=== PATIENT | female | born 1975 | race Caucasian/White ===

== ENCOUNTER 2018-05-21 11:08 | Emergency (ER) | payer BC, OTHER ==
[2018-05-21] MEDS ORDERED: NS 500 ML IV ONE (11:25)
[2018-05-21] MEDS ORDERED: ALBUTEROL 3 ML DEYVIAL IH ONE (11:25)
--- NOTE | 2018-05-21 11:25 | EDPHY ---
H & P Stated Complaint: DX WALKING PNA FEELING SOB Time Seen by Provider: 05/21/18 11:24 HPI/ROS: HPI: This is a 42-year-old female who presents with Chief Complaint: DX WALKING PNA FEELING SOB Location: Chest Quality: Dyspnea Duration: Since Wednesday Signs and Symptoms: + shortness of breath at rest, + shortness of breath on exertion, no cough, no chest pain, no palpitations, no lower extremity edema, no wheezing, no orthopnea, no paroxysmal nocturnal dyspnea, no fever, no injury/ trauma, no hemoptysis, no carpal pedal spasms Timing: Worsening Severity: [id number] Context: Patient reports that 2 weeks ago she had a cold. On Wednesday she started to feel like it was moving into her chest. She started to experience a nonproductive cough. She went to her primary care provider on Wednesday and was diagnosed with"walking pneumonia." She was given azithromycin 5 day pack as well as albuterol inhaler. She reports that today she feels short of breath with exertion and at rest. She denies any recent long distance travel, calf swelling, calf pain. She reports that she has been taking Mucinex and she is now coughing up phlegm. No history of lung disease. Modifying Factors: ProAir inhaler and azithromycin on day 4 of 5 Comment: ROS: A comprehensive 10 system review of systems is otherwise negative aside from elements mentioned in the history of present illness. MEDICAL/SURGICAL/SOCIAL HISTORY: Medical history: Generally healthy. Does not take any regular medications. Surgical history: Denies Social history: Never smoked. CONSTITUTIONAL: Nontoxic appearing middle-aged white female, awake and alert, no obvious distress HEENT: Atraumatic and normocephalic, PERRL, EOMI. Wears glasses, Nares patent; no rhinorrhea; no nasal mucosal edema. Tympanic membranes clear. Oropharynx clear, no exudate and moist pink mucosa. Airway patent. No lymphadenopathy. No meningismus. Cardiovascular: Normal S1/S2, regular rate, regular rhythm, without murmur rub or gallop. PULMONARY/CHEST: Symmetrical and nontender. Clear to auscultation bilaterally. Good air movement. No accessory muscle usage. ABDOMEN: Soft, nondistended, nontender, no rebound, no guarding, no peritoneal signs, no masses or organomegaly. No CVAT. EXTREMITIES: 2/2 pulses, strength 5/5, no deformities, no clubbing, no cyanosis or edema. NEUROLOGICAL: no focal neuro deficits. GCS 15. SKIN: Warm and dry, no erythema. no rash. Good capillary refill. Source: Patient Exam Limitations: No limitations - Personal History LMP (Females 10-55): 22-28 Days Ago Current Tetanus Diphtheria and Acellular Pertussis (TDAP): Yes - Medical/Surgical History Hx Asthma: No Hx Chronic Respiratory Disease: No Hx Diabetes: No Hx Cardiac Disease: No Hx Renal Disease: No Hx Cirrhosis: No Hx Alcoholism: No Hx HIV/AIDS: No Hx Splenectomy or Spleen Trauma: No Other PMH: PNA - Social History Smoking Status: Never smoked Constitutional: Initial Vital Signs Temperature (C) 37.2 C 05/21/18 11:17 Heart Rate 94 05/21/18 11:17 Respiratory Rate 20 05/21/18 11:17 Blood Pressure 120/85 H 05/21/18 11:17 O2 Sat (%) 100 05/21/18 11:17 O2 Delivery Mode Room Air Allergies/Adverse Reactions: amoxicillin [Amoxicillin] Allergy (Unknown, Verified 05/21/18 11:15) Penicillins Allergy (Unknown, Verified 05/21/18 11:15) CILLAINS Allergy (Uncoded 02/17/10 20:45) Home Medications: Medication Instructions Recorded Azithromycin 05/21/18 Metformin HCl 05/21/18 Proair Hfa 05/21/18 Spironolactone 05/21/18 predniSONE [predniSONE TAPER] 10 mg PO DAILY 6 Days ea 05/21/18 Medical Decision Making - Diagnostics Imaging Results: Imaging Impressions Chest X-Ray 05/21/18 11:25 Impression: Normal chest. ED Course/Re-evaluation: Vital signs reviewed and stable upon arrival. No systemic signs. O2 sats 100% on room air. IV access and laboratory studies obtained. Chest x-ray, albuterol inhaler, prednisone 60 mg and 500 cc normal saline bolus ordered. 1205: Labs reviewed. No signs of leukocytosis/anemia/platelet dysfunction/JUAN/ electrolyte imbalance//VTE. Chest x-ray my read shows no opacity, no effusion, no pneumothorax. Given a prescription for steroid taper. I do not believe a stronger antibiotic is indicated at this time as it appears to be viral in nature. This patient was seen under the supervision of my secondary supervising physician. I evaluated care for this patient independently. Discussed this patient with Dr. Millan. Differential Diagnosis: Shortness of breath including but not limited to pulmonary infectious process, COPD, asthma, pulmonary embolus and congestive heart failure. - Data Points Laboratory Results: Laboratory Results 05/21/18 11:40 05/21/18 11:40 05/21/18 05/21/18 05/21/18 11:40 11:40 11:40 WBC RBC Hgb Hct MCV MCH MCHC RDW Plt Count MPV Neut % (Auto) Lymph % (Auto) Crowley % (Auto) Eos % (Auto) Baso % (Auto) Nucleat RBC Rel Count Absolute Neuts (auto) Absolute Lymphs (auto) Absolute Monos (auto) Absolute Eos (auto) Absolute Basos (auto) Absolute Nucleated RBC Immature Gran % Immature Gran # D-Dimer < 0.27 ug/mLFEU ug/mLFEU (0.00-0.50) Sodium 140 mEq/L mEq/L (135-145) Potassium 3.6 mEq/L mEq/L (3.3-5.0) Chloride 104 mEq/L mEq/L (97-110) Carbon Dioxide 25 mEq/l mEq/l (22-31) Anion Gap 11 mEq/L mEq/L (6-14) BUN 11 mg/dL mg/dL (7-23) Creatinine 0.8 mg/dL mg/dL (0.6-1.0) Estimated GFR > 60 Glucose 98 mg/dL mg/dL (70-100) Calcium 9.4 mg/dL mg/dL (8.5-10.4) Beta HCG, Qual NEGATIVE 05/21/18 11:40 WBC 8.70 10^3/uL 10^3/uL (3.80-9.50) RBC 4.57 10^6/uL 10^6/uL (4.18-5.33) Hgb 13.4 g/dL g/dL (12.6-16.3) Hct 38.3 % % (38.0-47.0) MCV 83.8 fL fL (81.5-99.8) MCH 29.3 pg pg (27.9-34.1) MCHC 35.0 g/dL g/dL (32.4-36.7) RDW 11.9 % % (11.5-15.2) Plt Count 307 10^3/uL 10^3/uL (150-400) MPV 9.7 fL fL (8.7-11.7) Neut % (Auto) 64.6 % % (39.3-74.2) Lymph % (Auto) 21.0 % % (15.0-45.0) Crowley % (Auto) 9.9 % % (4.5-13.0) Eos % (Auto) 3.6 % % (0.6-7.6) Baso % (Auto) 0.6 % % (0.3-1.7) Nucleat RBC Rel Count 0.0 % % (0.0-0.2) Absolute Neuts (auto) 5.62 10^3/uL 10^3/uL (1.70-6.50) Absolute Lymphs (auto) 1.83 10^3/uL 10^3/uL (1.00-3.00) Absolute Monos (auto) 0.86 10^3/uL H 10^3/uL (0.30-0.80) Absolute Eos (auto) 0.31 10^3/uL 10^3/uL (0.03-0.40) Absolute Basos (auto) 0.05 10^3/uL 10^3/uL (0.02-0.10) Absolute Nucleated RBC 0.00 10^3/uL 10^3/uL (0-0.01) Immature Gran % 0.3 % % (0.0-1.1) Immature Gran # 0.03 10^3/uL 10^3/uL (0.00-0.10) D-Dimer Sodium Potassium Chloride Carbon Dioxide Anion Gap BUN Creatinine Estimated GFR Glucose Calcium Beta HCG, Qual Medications Given: Discontinued Medications Albuterol (Proventil Neb) 3 ml IH EDNOW ONE Stop: 05/21/18 11:26 Last Admin: 05/21/18 11:34 Dose: 3 ml Sodium Chloride (Ns) 500 mls @ 1,000 mls/hr IV EDNOW ONE PRN Reason: Protocol Stop: 05/21/18 11:54 Last Admin: 05/21/18 11:33 Dose: 500 mls Prednisone (Prednisone) 60 mg PO EDNOW ONE Stop: 05/21/18 12:42 Last Admin: 05/21/18 12:45 Dose: 60 mg Departure - Departure Disposition: Home, Routine, Self-Care Clinical Impression: Viral bronchitis Condition: Good Instructions: Acute Bronchitis (ED) Additional Instructions: Rest as much as possible until you are feeling better. Consume a minimum of 8-10 glasses of water or electrolyte fluid replacement drinks that include Gatorade, Powerade, Pedialyte. Complete the course of antibiotics as directed. Use albuterol inhaler every 4-6 hours as needed for shortness of breath, wheezing. Take prednisone taper as directed. Referrals: Nancie Ascencio NP [Primary Care Provider] - 3-4 days, if not improved Prescriptions: predniSONE [predniSONE TAPER] 10 mg PO DAILY 6 Days ea
[2018-05-21 11:52] LABS: PLATELET COUNT 307 10^3/uL (150-400)
[2018-05-21] MEDS ORDERED: predniSONE 20 MG TAB PO ONE (12:41)
[2018-05-21 13:27] VITALS: BP 140/89
== END 2018-05-21 13:35 | disposition home or self-care (01) ==
DX: J20.8 Acute bronchitis due to other specified organisms (principal); E86.9 Volume depletion, unspecified
CPT/HCPCS: J7512; J7613

== ENCOUNTER → 2018-12-08 | Outpatient (CLI) | payer BC | LOC: FIMAGING 11:38 | PROVIDERS: ATTEND Nurse Practitioner Family | DX: Z12.31 Encounter for screening mammogram for malignant neoplasm of breast (principal); N63.21 Unspecified lump in the left breast, upper outer quadrant ==

== ENCOUNTER → 2018-12-28 | Outpatient (CLI) | payer BC | LOC: FIMAGING 08:47 ==